=== PATIENT | female | born 1985 | race Caucasian/White ===

== ENCOUNTER 2017-06-07 18:04 | Emergency (ER) | payer MEDICAID ==
[~2017-06-07] VITALS: Ht 157.5 cm; Wt 76.7 kg
[2017-06-07 18:21] VITALS: BP 131/77
--- NOTE | 2017-06-07 18:26 | NUR ---
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 PT STATES . DENIES N/V/D; SKIN IS PINK/WARM/DRY; AAOX4 WITH EVEN AND STEADY GAIT; LUNGS CLEAR BL; HR EVEN AND REGULAR; PT DENIES ANY FEVER, CP, SOB, OR COUGH AT THIS TIME; PATIENT STATES PAIN OF 8/10 AT THIS TIME; VSS; PATIENT POSITIONED FOR COMFORT; . ER MD MADE AWARE OF PT STATUS.
--- NOTE | 2017-06-07 19:32 | NUR ---
PA AT BEDSIDE EVALUATING PT.
[2017-06-07] MEDS ORDERED: KETOROLAC 30 MG/ML VIAL IM ONE (19:40)
[2017-06-07 20:19] VITALS: BP 121/74
--- NOTE | 2017-06-07 20:21 | NUR ---
Patient discharged with v/s stable. Written and verbal after care instructions given and explained. Patient alert, oriented and verbalized understanding of instructions. Ambulatory with steady gait. All questions addressed prior to discharge. ID band removed. Patient advised to follow up with PMD. Rx of tylenol extra q4hrs, IBU q6hrs given. Patient educated on indication of medication including possible reaction and side effects. Opportunity to ask questions provided and answered.
== END 2017-06-07 20:21 | disposition home or self-care (01) ==
LOC: MED 18:04
DX: R51 Headache (principal); M25.511 Pain in right shoulder; M25.512 Pain in left shoulder
CPT/HCPCS: 96372; 99283; J1885